=== PATIENT | female | born 1985 | race American Indian/Alaskan Native ===

== ENCOUNTER 2018-08-07 15:22 | Emergency (ER) | payer SELFPAY ==
[2018-08-07 15:50] VITALS: BP 125/73
[2018-08-07] MEDS ORDERED: NACL 0.9% 1000 ML 1,000 ML IV ONE (15:53)
[2018-08-07 16:16] LABS: Basophils % (Auto) 0.3 % (0.0-1.8); Eosinophils # (Auto) 0.1 K/mm3 (0.0-0.4); Eosinophils % (Auto) 1.1 % (0.0-4.3); Hematocrit 37.1 % (30.3-42.9); Lymphocytes # (Auto) 1.7 K/mm3 (1.2-5.4); Lymphocytes % (Auto) 30.6 % (13.4-35.0); Mean Corpuscular HGB Conc 33 % (30-34); Mean Corpuscular Hemoglobin 27 pg (28-32); Mean Corpuscular Volume 83 fl (79-97); Monocytes # (Auto) 0.4 K/mm3 (0.0-0.8); Monocytes % (Auto) 7.9 % (0.0-7.3); Platelet Count 181 K/mm3 (140-440); Red Blood Count 4.44 M/mm3 (3.65-5.03); Red Cell Distribution Width 14.6 % (13.2-15.2)
[2018-08-07 16:32] LABS: Albumin 4.2 g/dL (3.9-5); BUN/Creatinine Ratio 14; Blood Urea Nitrogen 11 mg/dL (7-17); Hemolysis Index 5
[2018-08-07 16:33] LABS: Alanine Aminotransferase < 5 units/L (7-56)
--- NOTE | 2018-08-07 16:48 | Emergency Department Report ---
ED Abdominal Pain HPI - General Chief Complaint: Abdominal Pain Stated Complaint: LOWER STOMACH PAIN EXTREME Time Seen by Provider: 08/07/18 15:25 Source: patient Mode of arrival: Ambulatory Limitations: No Limitations - History of Present Illness MD Complaint: abdominal pain -: days(s) Location: suprapubic Radiation: none Migration to: suprapubic Severity: moderate Quality: cramping Consistency: intermittent Improves With: nothing Worsens With: nothing Associated Symptoms: constipation. denies: nausea, vomiting, diarrhea, fever, chills, dysuria, hematemesis, hematochezia, melena, hematuria, anorexia, syncope - Related Data LMP (females 10-50): 3 weeks Previous Rx's Medication Instructions Recorded Last Taken Type Polyethylene Glycol 3350 [Miralax 17 gm PO QDAY #30 packet 08/07/18 Unknown Rx 3350] Allergies Allergy/AdvReac Type Severity Reaction Status Date / Time No Known Allergies Allergy Unverified 08/07/18 15:50 ED Review of Systems ROS: Stated complaint: LOWER STOMACH PAIN EXTREME Other details as noted in HPI Comment: All other systems reviewed and negative Constitutional: denies: chills Eyes: denies: eye pain ENT: denies: ear pain, throat pain Respiratory: see HPI. denies: cough, orthopnea Cardiovascular: denies: chest pain, palpitations, dyspnea on exertion, orthopnea Endocrine: denies: excessive sweating, flushing, intolerance to cold, intolerance to heat Gastrointestinal: abdominal pain, constipation, other (PELVIC PRESSURE). denies : nausea, vomiting, diarrhea, hematemesis, melena, hematochezia Genitourinary: denies: urgency, dysuria, frequency, hematuria, discharge, abnormal menses, dyspareunia Musculoskeletal: denies: back pain Skin: denies: rash, lesions Neurological: denies: headache, weakness Psychiatric: denies: anxiety, depression Hematological/Lymphatic: denies: easy bleeding ED Past Medical Hx - Past Medical History Previous Medical History?: No - Surgical History Past Surgical History?: No - Family History Family history: no significant - Social History Smoking Status: Never Smoker Substance Use Type: None - Medications Home Medications: Home Medications Medication Instructions Recorded Confirmed Last Taken Type Polyethylene Glycol 3350 [Miralax 17 gm PO QDAY #30 packet 08/07/18 Unknown Rx 3350] ED Physical Exam - General Limitations: No Limitations General appearance: alert - Head Head exam: Present: atraumatic - Eye Eye exam: Present: PERRL - ENT ENT exam: Present: normal exam, mucous membranes moist - Neck Neck exam: Present: normal inspection - Respiratory Respiratory exam: Present: normal lung sounds bilaterally - Cardiovascular Cardiovascular Exam: Present: regular rate - GI/Abdominal GI/Abdominal exam: Present: soft, normal bowel sounds. Absent: distended, tenderness, guarding, rebound, rigid, hyperactive bowel sounds, hypoactive bowel sounds, organomegaly, mass, bruit, pulsatile mass, hernia - Rectal Rectal exam: Present: deferred - External exam: Present: normal external exam - Extremities Exam Extremities exam: Present: normal inspection, full ROM, normal capillary refill. Absent: tenderness - Back Exam Back exam: Present: normal inspection, full ROM. Absent: tenderness, CVA tenderness (R), CVA tenderness (L) - Neurological Exam Neurological exam: Present: alert, oriented X3, CN II-XII intact, normal gait, reflexes normal - Psychiatric Psychiatric exam: Present: normal affect, normal mood - Skin Skin exam: Present: warm, dry, intact, normal color. 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 ED Disposition Clinical Impression: Constipation Disposition: DC-01 TO HOME OR SELFCARE Is pt being admited?: No Does the pt Need Aspirin: No Condition: Stable Instructions: Constipation (ED), High Fiber Diet (ED) Additional Instructions: HYDRATE WELL HIGH FIBER DIET ACTIVITY TOLERATED DAILY MIRALAX FOLLOW UP PCP REFERRAL PROVIDED HERE Prescriptions: Polyethylene Glycol 3350 [Miralax 3350] 17 gm PO QDAY #30 packet Referrals: ANASTASIA KOHLI MD [Primary Care Provider] - 3-5 Days MARILU ULLOA MD [Staff Physician] - 3-5 Days Time of Disposition: 18:29
[2018-08-07] MEDS ORDERED: CITRATE OF MAGNESIA PO ONE (17:08)
--- NOTE | 2018-08-07 17:20 | XRay Report ---
FINAL REPORT EXAM: XR ABDOMEN 2V HISTORY: PELVIC PRESSURE TECHNIQUE: Frontal views of the abdomen and pelvis in the supine and upright positions Comparison: None FINDINGS: The bowel gas pattern is nonobstructive with air in mildly distended loops of small bowel and colon. There is a [id number] amount of stool throughout the colon. There is no evidence of pneumoperitoneum nor organomegaly. The bony structures are unremarkable. IMPRESSION: 1. No plain film evidence of an acute intra-abdominal process. If further imaging is required, CT may be helpful. 2. Jtbe-[id number] amount of stool throughout the colon.
[2018-08-07 17:43] LABS: Bilirubin,Urine NEG (Negative); Blood,Urine LG (Negative); Color,Urine Yellow (Yellow); Mucus,Urine FEW /HPF; Protein,Urine <15 mg/dL mg/dL (Negative)
== END 2018-08-07 19:32 | disposition home or self-care (01) ==
LOC: ED 15:22
DX: K59.00 Constipation, unspecified (principal)
CPT/HCPCS: 36415; 74019; 80053; 81001; 84703; 85025; 87210; 87591; 99284

== ENCOUNTER 2018-12-25 18:37 | Emergency (ER) | payer OTHER ==
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
[2018-12-25 20:52] VITALS: BP 122/62
== END 2018-12-25 22:30 | disposition left against medical advice (07) ==
LOC: ED 18:37
DX: M54.2 Cervicalgia (principal); R51 Headache; V89.0XXA Person injured in unspecified motor-vehicle accident, nontraffic, initial encounter; Y93.89 Activity, other specified; Y92.488 Other paved roadways as the place of occurrence of the external cause; Y99.8 Other external cause status; Z53.21 Procedure and treatment not carried out due to patient leaving prior to being seen by health care provider

== ENCOUNTER 2018-12-28 13:25 | Emergency (ER) | payer OTHER ==
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
[2018-12-28 13:42] VITALS: BP 129/75
[2018-12-28] MEDS ORDERED: IBUPROFEN PO ONE (13:42)
[2018-12-28 14:20] LABS: HCG Qualitative,Urine Negative (Negative)
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
--- NOTE | 2018-12-28 15:23 | XRay Report ---
CERVICAL SPINE, 3 views: History: Pain. AP and lateral views of the cervical spine were obtained. There is anatomic alignment, and the disc spaces are well maintained. There is no evidence of fracture or subluxation. There is loss of the normal cervical lordotic curve suggestive of muscle spasm. The prevertebral soft tissues are within normal limits. IMPRESSION: Loss of cervical lordosis suggesting muscle spasm vs. variation in patient positioning. Clinical correlation is advised. Otherwise negative cervical spine.
--- NOTE | 2018-12-28 15:23 | XRay Report ---
LEFT SHOULDER: History: Pain. Routine views demonstrate normal bony and soft tissue structures with normal joint alignment of the shoulder. IMPRESSION: Normal study.
== END 2018-12-28 15:14 | disposition home or self-care (01) ==
LOC: ED 13:25
DX: S16.1XXA Strain of muscle, fascia and tendon at neck level, initial encounter (principal); S46.002A Unspecified injury of muscle(s) and tendon(s) of the rotator cuff of left shoulder, initial encounter; V89.2XXA Person injured in unspecified motor-vehicle accident, traffic, initial encounter; Y93.89 Activity, other specified; Y92.89 Other specified places as the place of occurrence of the external cause; Y99.8 Other external cause status
CPT/HCPCS: 72040; 81025

== ENCOUNTER 2019-10-10 01:44 | Emergency (ER) | payer SELFPAY ==
[2019-10-10 03:04] VITALS: BP 122/89
== END 2019-10-10 02:30 | disposition left against medical advice (07) ==
LOC: ED 01:44
DX: R42 Dizziness and giddiness (principal); Z53.21 Procedure and treatment not carried out due to patient leaving prior to being seen by health care provider

== ENCOUNTER 2019-10-10 20:46 | Emergency (ER) | payer SELFPAY ==
[2019-10-10 22:05] LABS: Alanine Aminotransferase 8 units/L (7-56); Albumin 4.2 g/dL (3.9-5); BUN/Creatinine Ratio 10; Blood Urea Nitrogen 7 mg/dL (7-17); Hemolysis Index 8
[2019-10-10 22:08] LABS: Hematocrit 36.5 % (30.3-42.9); Hemoglobin 11.7 gm/dl (10.1-14.3); Mean Corpuscular HGB Conc 32 % (30-34); Mean Corpuscular Volume 85 fl (79-97); Platelet Count 195 K/mm3 (140-440); Red Blood Count 4.29 M/mm3 (3.65-5.03)
[2019-10-10 22:22] LABS: Bacteria,Urine 1+ /HPF (Negative); Bilirubin,Urine NEG (Negative); Blood,Urine NEG (Negative); Color,Urine Yellow (Yellow); Mucus,Urine FEW /HPF; Protein,Urine <15 mg/dL mg/dL (Negative)
[2019-10-10 22:47] LABS: Total Cells Counted 100
[2019-10-10 22:48] LABS: Anisocytosis Few; Platelet Estimate Consistent w Auto
--- NOTE | 2019-10-11 02:21 | Ultrasound Report ---
Pelvic ultrasound with Doppler INDICATION: Left lower abdominal and pelvic pain FINDINGS: Uterus measures 12 x 3 x 5 cm. Endometrial thickness is normal at 8 mm. Both ovaries are wi thin normal limits in normal Doppler flow IMPRESSION: No acute findings. Signer Name: Michael Tatum MD Signed: 10/11/2019 2:17 AM Workstation Name: [id number]
--- NOTE | 2019-10-11 03:51 | Emergency Department Report ---
ED Female HPI - General Chief complaint: Abdominal Pain Stated complaint: ABD PAIN, DIZZINES, SOB, NUMB LEGS BACK AND BREAST Source: patient Mode of arrival: Ambulatory Limitations: No Limitations - History of Present Illness Initial comments: Patient is a A0 34-year-old -[place] female with no past medical history who presents to the ED with complaint of acute onset persistent pelvic pain that radiates to the left lower quadrant with this dysuria, urinary fr equency and urgency and vaginal discharge for 1 month. Patient states that she had been using Monistat thinking this would be able to help control her symptoms. Patient denies vaginal bleeding, dyspareunia, abdominal pain, nausea, vomiting, diarrhea, chest pain, shortness of breath, fever and chills. MD Complaint: vaginal discharge, pelvic pain -: Gradual, month(s) (1) Location: suprapubic Radiation: non-radiating Severity: moderate Severity scale (0 -10): 4 Quality: aching Consistency: constant Improves with: none Worsens with: movement Are you Now?: No Last Menstrual Period: 09/25/19 EDC: 07/01/20 Associated Symptoms: denies other symptoms, vaginal discharge, abdominal pain. denies: vaginal bleeding, nausea/vomiting, fever/chills, headaches, loss of appetite, dysuria, rash, seizure, shortness of breath, syncope, weakness - Related Data Previous Rx's Medication Instructions Recorded Last Taken Type Polyethylene Glycol 3350 [Miralax 17 gm PO QDAY #30 packet 08/07/18 Unknown Rx 3350] HYDROcodone/APAP 5-325 [[place] 1 each PO Q6HR PRN #15 tablet 12/28/18 Unknown Rx 5/325] Ibuprofen [Motrin] 800 mg PO Q8HR PRN #20 tablet 12/28/18 Unknown Rx methOCARBAMOL [Robaxin TAB] 500 mg PO Q6H PRN #15 tablet 12/28/18 Unknown Rx Ibuprofen [Motrin] 800 mg PO Q8HR PRN #24 tablet 10/11/19 Unknown Rx metroNIDAZOLE [Flagyl] 500 mg PO Q12HR #14 tab 10/11/19 Unknown Rx Allergies Allergy/AdvReac Type Severity Reaction Status Date / Time No Known Allergies Allergy Verified 12/25/18 20:49 ED Review of Systems ROS: Stated complaint: ABD PAIN, DIZZINES, SOB, NUMB LEGS BACK AND BREAST Other details as noted in HPI Constitutional: denies: chills, fever Eyes: denies: eye pain, eye discharge, vision change ENT: denies: ear pain, throat pain Respiratory: denies: cough, shortness of breath, wheezing Cardiovascular: denies: chest pain, palpitations Endocrine: no symptoms reported Gastrointestinal: denies: abdominal pain, nausea, diarrhea Genitourinary: urgency, dysuria, frequency, discharge, other Musculoskeletal: denies: back pain, joint swelling, arthralgia Skin: denies: rash, lesions Neurological: denies: headache, weakness, paresthesias Psychiatric: denies: anxiety, depression Hematological/Lymphatic: denies: easy bleeding, easy bruising ED Past Medical Hx - Past Medical History Previous Medical History?: No - Surgical History Past Surgical History?: Yes Additional Surgical History: x2 - Social History Smoking Status: Never Smoker Substance Use Type: None - Medications Home Medications: Home Medications Medication Instructions Recorded Confirmed Last Taken Type Polyethylene Glycol 3350 [Miralax 17 gm PO QDAY #30 packet 08/07/18 Unknown Rx 3350] HYDROcodone/APAP 5-325 [[place] 1 each PO Q6HR PRN #15 tablet 12/28/18 Unknown Rx 5/325] Ibuprofen [Motrin] 800 mg PO Q8HR PRN #20 tablet 12/28/18 Unknown Rx methOCARBAMOL [Robaxin TAB] 500 mg PO Q6H PRN #15 tablet 12/28/18 Unknown Rx Ibuprofen [Motrin] 800 mg PO Q8HR PRN #24 tablet 10/11/19 Unknown Rx metroNIDAZOLE [Flagyl] 500 mg PO Q12HR #14 tab 10/11/19 Unknown Rx ED Physical Exam - General Limitations: No Limitations General appearance: alert, in no apparent distress - Head Head exam: Present: atraumatic, normocephalic, normal inspection - Eye Eye exam: Present: normal appearance, PERRL, EOMI Pupils: Present: normal accommodation - ENT ENT exam: Present: normal exam, normal orophraynx, mucous membranes moist, TM's normal bilaterally, normal external ear exam - Neck Neck exam: Present: normal inspection, full ROM. Absent: tenderness, meningismus - Respiratory Respiratory exam: Present: normal lung sounds bilaterally. Absent: respiratory distress, wheezes, rales, rhonchi, chest wall tenderness, decreased breath sounds - Cardiovascular Cardiovascular Exam: Present: regular rate, normal rhythm, normal heart sounds. Absent: systolic murmur, diastolic murmur, rubs, gallop - GI/Abdominal GI/Abdominal exam: Present: soft, normal bowel sounds. 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 Absent: cervical motion tendernes, adnexal tenderness, uterine tenderness - Extremities Exam Extremities exam: Present: normal inspection, full ROM, normal capillary refill - Back Exam Back exam: Present: normal inspection, full ROM - Neurological Exam Neurological exam: Present: alert, oriented X3, CN II-XII intact, normal gait, reflexes normal - Psychiatric Psychiatric exam: Present: normal affect, normal mood - Skin Skin exam: Present: warm, dry, intact, normal color. Absent: rash ED Course Vital Signs 10/10/19 20:53 Temperature 98.5 F Pulse Rate 62 Respiratory 14 Rate Blood Pressure 112/72 O2 Sat by Pulse 100 Oximetry ED Medical Decision Making - Lab Data Result diagrams: 10/10/19 21:29 10/10/19 21:29 - Radiology Data Radiology results: report reviewed, image reviewed Findings [address] [address] Ultrasound Report Signed Patient: WANDY SELLERS MR#: [id number] : 1985 Acct:[id number] Age/Sex: 34 / F ADM Date: 10/10/19 Loc: ED Attending Dr: Ordering Physician: CRUZ GARCIA Date of Service: 10/11/19 Procedure(s): US pelvic complete Accession Number(s): [id number] cc: CRUZ GARCIA Pelvic ultrasound with Doppler INDICATION: Left lower abdominal and pelvic pain FINDINGS: Uterus measures 12 x 3 x 5 cm. Endometrial thickness is normal at 8 mm. Both ovaries are within normal limits in normal Doppler flow IMPRESSION: No acute findings. Signer Name: Michael Tatum MD Signed: 10/11/2019 2:17 AM Workstation Name: [id number] Transcribed By: Dictated By: Michael Tatum MD Electronically Authenticated By: Michael Tatum MD Signed Date/Time: 10/11/19216 DD/ 4 - Medical Decision Making This is a 34-year-old female who presented to the ED with pelvic pain with vaginal discharge for 1 month. In the ED, patient is alert and oriented 3 and is not in distress. Lab test results were reviewed and are nonactionable inc luding urinalysis. Pelvic exam is unremarkable except for thick yellowish vaginal discharge. Pelvic ultrasound shows uterus measuring 12 x 3 x 5 cm. Endometrial thickness is normal at 8 mm. Both ovaries are within normal limits in normal Doppler flow. Wet prep tests showed significant Gardnerella vaginalis but negative for Trichomonas and yeast. Patient was discharged home on medications for bacterial vaginosis and pain medications and was advised to follow-up with [facility] physician intervention days for reevaluation. Patient was advised to return to the ED immediately if symptoms get worse. - Differential Diagnosis UTI; Ovarian cysts; Ovarian torsion; STD; PID; Kidney stones Critical care attestation.: If time is entered above; I have spent that time in minutes in the direct care of this critically ill patient, excluding procedure time. ED Disposition Clinical Impression: Acute pelvic pain, female, Bacterial vaginosis Disposition: - TO HOME OR SELFCARE Is pt being admited?: No Condition: Stable Instructions: Abdominal Pain (ED), Bacterial Vaginosis (ED) Additional Instructions: Take medication with food, drink plenty of fluids and follow-up with your primary care physician in 5-7 days for reevaluation. Return to the ED immediately if symptoms get worse. Prescriptions: metroNIDAZOLE [Flagyl] 500 mg PO Q12HR #14 tab Ibuprofen [Motrin] 800 mg PO Q8HR PRN #24 tablet PRN Reason: Pain , Severe (7-10) Referrals: PRIMARY CARE, [Primary Care Provider] - 3-5 Days Forms: STI Treatment and Prevention Time of Disposition: 03:58 Print Language: SWAZI
[2019-10-11 04:18] VITALS: BP 112/63
== END 2019-10-11 04:19 | disposition home or self-care (01) ==
LOC: ED 20:46
DX: N76.0 Acute vaginitis (principal); Z79.899 Other long term (current) drug therapy
CPT/HCPCS: 36415; 76856; 80053; 81001; 83690; 84703; 85007; 85025; 87210; 87591